=== PATIENT | female | born 1950 | race Caucasian/White ===

== ENCOUNTER → 2017-01-06 | Outpatient (CLI) | payer OTHER ==
[~2017-01-06] MED LIST: BACTRIM DS TABL1 TA1 PO; CO Q10100 MG PO; FISH OIL 1,0001 EACH PO; LIPITOR PO
--- NOTE | ~2017-01-06 | MY11 ---
[facility] A Service of [facility] RADIOLOGY TEXT RESULTS PATIENT: JAMIN BREWER LOCATION: [facility] : 48 UNIT #: [id number] AGE: [address]: REBECCA ORTEZ APRN SEX: F ORDER DR: [id number] [place] [id number] [facility]. [place], [place] [address] [id number] O MR#: [id number] Acc #: [id number] NAME: JAMIN BREWER. : 1950 SEX: F STUDY DATE/TIME: 01/06/2017 14:30 UNIT: [facility] ROOM: STUDY DESCRIPTION: MY Mammogram Screening Dig [place] Attending Physician: Rebecca Ortez Aprn Ordering Physician: Rebecca Ortez Aprn Primary Care Physician: Rebecca Ortez Aprn MEDICAL IMAGING REPORT This report is preliminary unless electronic signature is present EXAM Bilateral digital screening mammogram with CAD. COMPARISON None available. Prior mammograms were performed many years ago and are not available for comparison. INDICATIONS Breast cancer screening. 66-year asymptomatic female. No personal or family history of breast cancer. FINDINGS There are scattered fibroglandular densities. There are no suspicious findings in the right breast. In the middle third of the medial left breast, only seen on CC view, there is a 4 mm asymmetry, possibly with associated microcalcifications. IMPRESSION 1. No mammographic evidence of malignancy in the right breast. 2. Left breast asymmetry only seen on CC view, possibly with associated microcalcifications. Further evaluation with spot magnification CC view is recommended in addition to full field rolled medial and rolled lateral CC views, possibly followed by left breast ultrasound. Patients over the age of 40 are entered into a reminder system with target due date for the next mammogram. A result letter will also be sent to the patient. BIRADS: 0 Incomplete; Need additional imaging evaluation and/or prior mammograms for comparison. Dictated by... [facility] A Service [facility] RADIOLOGY TEXT RESULTS PATIENT: JAMIN BREWER LOCATION: [facility] : 48 UNIT #: [id number] AGE: [address]: REBECCA ORTEZ APRN SEX: F ORDER DR: Luis Salgado M.D. THIS IS AN ELECTRONICALLY VERIFIED REPORT Luis Salgado M.D. at 01/08/2017 7:07 PM CYNDY/aurora TD: 01/07/2017 12:04 JOB #: [id number] MEDICAL IMAGING REPORT COPY
== END | disposition home or self-care (01) ==
LOC: CWCC 14:16
DX: Z12.31 Encounter for screening mammogram for malignant neoplasm of breast (principal); N64.89 Other specified disorders of breast
CPT/HCPCS: G0202

== ENCOUNTER → 2017-01-25 | Outpatient (CLI) | payer OTHER ==
--- NOTE | ~2017-01-25 | US24 ---
[facility] A Service of [facility] RADIOLOGY TEXT RESULTS PATIENT: JAMIN BREWER LOCATION: [facility] : 48 UNIT #: [id number] AGE: [address]: REBECCA ORTEZ APRN SEX: F ORDER DR: [id number] [facility] [address] [facility]. [place], [place] [address] [id number] O MR#: [id number] Acc #: [id number] NAME: JAMIN BREWER. : 1950 SEX: F STUDY DATE/TIME: 01/25/2017 12:31 UNIT: [facility] ROOM: STUDY DESCRIPTION: US Breast Unilateral Attending Physician: Rebecca Ortez Aprn Referring Physician: Rebecca Ortez Aprn Ordering Physician: Rebecca Ortez Aprn Primary Care Physician: Rebecca Ortez Aprn MEDICAL IMAGING REPORT This report is preliminary unless electronic signature is present EXAM Left breast ultrasound. HISTORY Left breast mass. PROCEDURE Grayscale and Doppler imaging, left breast area of mammographic abnormality. COMPARISON Concurrently performed diagnostic mammogram. FINDINGS/IMPRESSION Refer to the separately dictated diagnostic mammogram for work-up, findings and recommendations BIRADS: 3 Probably benign finding; short interval followup suggested. Dictated by... Tyler Matute M.D. THIS IS AN ELECTRONICALLY VERIFIED REPORT Tyler Matute M.D. at 01/26/2017 9:39 AM BHARGAVI/paola TD: 01/25/2017 13:09 JOB #: [id number] MEDICAL IMAGING REPORT Page 1 of 1 COPY
--- NOTE | ~2017-01-25 | MY7 ---
[facility] A Service of [facility] RADIOLOGY TEXT RESULTS PATIENT: JAMIN BREWER LOCATION: [facility] : 48 UNIT #: [id number] AGE: [address]: REBECCA ORTEZ APRN SEX: F ORDER DR: [id number] [facility] [address] [facility]. [place], [place] [address] [id number] O MR#: [id number] Acc #: [id number] NAME: JAMIN BREWER. : 1950 SEX: F STUDY DATE/TIME: 01/25/2017 12:18 UNIT: [facility] ROOM: STUDY DESCRIPTION: MY Mammogram Dx Dig Lt Attending Physician: Rebecca Ortez Aprn Referring Physician: Rebecca Ortez Aprn Ordering Physician: Rebecca Ortez Aprn Primary Care Physician: Rebecca Ortez Aprn MEDICAL IMAGING REPORT This report is preliminary unless electronic signature is present EXAM Left digital diagnostic mammogram INDICATIONS Asymmetry in the left breast on screening mammogram PROCEDURE Spot compression view of the left breast in the CC projection. Rolled medial and lateral views in the CC projection. Images obtained on a digital mammography unit. COMPARISON 01/06/2017 FINDINGS There is approximately 3 mm mass in the medial left breast with some associated indeterminate microcalcifications. The mass itself is difficult to see on the spot compression views secondary to some overlying tissue but the calcifications are clearly seen, and the mass is seen on the rolled views. Concurrently performed left breast ultrasound demonstrates a few focally prominent ducts in the subareolar volar region and 7 o'clock position. It is not clear whether these represent the mammographic abnormality. IMPRESSION 3 mm mass with a few associated calcifications in the medial left breast. There are is some focally prominent ducts in the left breast at the 7 o'clock position seen on the concurrently performed ultrasound. Is not clear whether these represent the same abnormality. No appreciable intraductal mass is seen. [facility] A Service [facility] RADIOLOGY TEXT RESULTS PATIENT: JAMIN BREWER [id number] : 46 UNIT #: [id number] AGE: [address]: REBECCA ORTEZ APRN SEX: F ORDER DR: Recommend patient return for a 6-month followup left diagnostic mammogram and ultrasound to document stability. Patients over the age of 40 are entered into a reminder system with target due date for the next mammogram. A result letter will also be sent to the patient. BIRADS: 3 - probably benign findings. 6-month follow up left diagnostic mammogram and ultrasound recommended to document stability. Dictated by... Tyler Matute M.D. THIS IS AN ELECTRONICALLY VERIFIED REPORT Tyler Matute M.D. at 01/26/2017 9:39 AM BHARGAVI/ronal TD: 01/25/2017 13:05 JOB #: [id number] MEDICAL IMAGING REPORT Page 1 of 1 COPY
== END | disposition home or self-care (01) ==
LOC: CMAM 11:40
DX: R92.8 Other abnormal and inconclusive findings on diagnostic imaging of breast (principal); N63 Unspecified lump in breast; R92.1 Mammographic calcification found on diagnostic imaging of breast
CPT/HCPCS: 76641; G0206

== ENCOUNTER → 2017-03-13 | Day surgery (SDC) | payer MEDICARE ==
--- NOTE | ~2017-03-13 | OR ---
Unit #: [id number] #: [id number] Patient: JAMIN BREWER [id number] [address] [place], [place] [address] [id number] O MR#: [id number] NAME: JAMIN BREWER ROOM: Date of Procedure: 03/13/2017 Admission Date: 03/13/2017 Surgeon: Jamie Pearce M.D. : 1950 Attending Physician: Jamie Pearce M.D. Primary Care Physician: Elisa Powers Aprn OPERATIVE REPORT PREOPERATIVE DIAGNOSES Colorectal cancer screening in an average-risk patient. PROCEDURES PERFORMED Colonoscopy and polypectomy. POSTOPERATIVE DIAGNOSES 1. The patient had 2 sessile polyps, the largest of these was in the sigmoid colon about 2 cm in size. The smaller polyp of the two was in the proximal descending colon about 1 cm in size. Both the polyps were sessile and were removed using snare cautery polypectomy. 2. Mild localized sigmoid and descending colon diverticulosis. 3. Rest of the examination up to cecum was normal. The quality of the prep was fair. RECOMMENDATIONS Follow up results of polyp histology and consider repeat colonoscopy in 5 years. SEDATION USED MAC. DESCRIPTION OF PROCEDURE Following detailed explanation of potential risks and complications of a colonoscopy, namely perforation, bleeding, and complications related to sedation, the patient was brought to GI lab and laid in the left lateral decubitus position. A digital rectal examination was performed, which was normal. Lubricated tip of the Olympus video colonoscope was inserted through the anus and advanced under direct vision. The scope was advanced and passed up to sigmoid into descending colon. A large sessile polyp was noted in the mid sigmoid colon adjacent to cluster of diverticula. This was about 2 cm in size and was sessile. The scope was then advanced in the descending colon, where a few more diverticula were noted. The scope tip was then navigated all the way up to cecum with visualization of the ileocecal valve and the appendiceal orifice. Preparation was fair with good visualization and photodocumentation was obtained. Successive segments of the colonic mucosa were examined upon withdrawal. A single sessile polyp was noted in the proximal descending colon. This was about a 1 cm in size. It was sessile adenoma and was removed using snare cautery polypectomy. Attention was then focused on the sigmoid polyp. The latter was removed using snare cautery polypectomy. Excellent Unit #: [id number] #: [id number] Patient: JAMIN BREWER hemostasis was achieved and photodocumentation was obtained. No additional polyps noted. Other than the diverticula on the left side, no other abnormalities were found. The patient did not have any hemorrhoids at anal verge. The scope was then withdrawn. The patient returned to the recovery area. The patient tolerated the procedure without any postprocedure complications. Dictated by... Frandy Alves/annabel TD: 03/14/2017 03:56 JOB #: [id number] OPERATIVE REPORT Page 1 of 1 X Jamie Pearce MD X PROCEDURE OPERATIVE NOTE
== END | disposition home or self-care (01) ==
LOC: COPS 11:18
PROVIDERS: Internal Medicine Gastroenterology
PROC: 0DBM8ZX Excision of Descending Colon, Via Natural or Artificial Opening Endoscopic, Diagnostic (ICD-10-PCS; principal; 2017-03-13 13:00)
DX: Z12.11 Encounter for screening for malignant neoplasm of colon (principal); D12.4 Benign neoplasm of descending colon; D12.5 Benign neoplasm of sigmoid colon; K57.30 Diverticulosis of large intestine without perforation or abscess without bleeding; F17.200 Nicotine dependence, unspecified, uncomplicated; Z79.899 Other long term (current) drug therapy
CPT/HCPCS: 88305